=== PATIENT | male | born 1945 | race Caucasian/White ===

== ENCOUNTER → 2022-03-04 | Outpatient (CLI) | payer MEDICARE, BC ==
[~2022-03-04] MED LIST: ASPIRIN 81M81 MG/TA2 PO; PERCOCET 325 MG1 TA2 PO; PLETAL 100MG T100 MG PO; PRAVACHOL 40MG40 MG PO; PRINIVIL10 MG PO; SYNTHROID0.05 MG/TA PO
== END ==
LOC: COL.RAD 09:19
DX: R19.7 Diarrhea, unspecified (principal); K82.8 Other specified diseases of gallbladder
CPT/HCPCS: A9537

== ENCOUNTER 2022-05-02 09:20 | Day surgery (SDC) | payer MEDICARE, BC ==
[~2022-05-02] VITALS: Ht 175.3 cm; Wt 66.0 kg
[2022-05-02] MEDS ORDERED: LOPRESSOR 225 MG/TAB PO (09:52)
[2022-05-02 10:28] LABS: BASO % 0.5 % (0.0-2.0); EOS # 0.3 K/mm3 (0.0-0.7); EOS % 5.1 % (0.0-4.0); GRAN # 4.2 K/mm3 (1.4-6.5); HEMATOCRIT 44.5 % (42.0-52.0); HEMOGLOBIN 15.3 g/dl (13.5-18.0); LYMPH # 0.8 K/mm3 (1.2-3.4); LYMPH % 12.7 % (20.0-51.0); MEAN CELL VOLUME 90 fl (80.0-100.0); MEAN CORPUSCULAR HEMOGLOBIN 31 pg (27-31); MEAN CORPUSCULAR HGB CONC 34 g/dl (33.0-37.0); MEAN PLATELET VOLUME 10.3 fl (7.4-10.4); MONO # 0.7 K/mm3 (0.1-0.6); MONO % 11.4 % (1.7-9.3); PLATELET COUNT 205 K/mm3 (130-400); RED BLOOD COUNT 4.95 M/mm3 (4.20-5.60); REDCELL DISTRIBUTION WIDTH-CV 14.2 % (11.5-14.5)
[2022-05-02] MEDS ORDERED: NORCO 325 MG-51 TAB PO (10:44)
[2022-05-02] MEDS ORDERED: MOTRIN 600600 MG/TAB PO (10:44)
[2022-05-02 11:27] VITALS: BP 167/84; PULSE 76; TEMP 97.2
[2022-05-02 11:40] LABS: CALCIUM 8.8 mg/dL (8.4-10.2); CREATININE, serum 0.94 mg/dL (0.72-1.25)
[2022-05-02 13:30] VITALS: BP 148/77; PULSE 82; TEMP 97.4
[2022-05-02 13:45] VITALS: BP 145/75; PULSE 80
[2022-05-02 14:00] VITALS: BP 157/63; PULSE 85
[2022-05-02 14:15] VITALS: BP 136/62; PULSE 62
[2022-05-02 14:30] VITALS: BP 142/67; PULSE 81
--- NOTE | 2022-05-02 16:01 | NUR ---
1330: Patient arrived back into bay 2 from PACU. Patient is alert and oriented. Vital signs stable on 2L O2. Report received from RONNY Kemp. Requesting orange juice. Patient denies pain or nausea but states he doesn't feel well and his stomach hurts. at bedside. Call light left within reach. 1345: Patient vitally stable, weaned to 1L O2. Tolerating drink well. Warm blanket applied to patient's stomach. Denies nausea. Chocolate pudding placed at bedside for patient. States he would like to rest. 1400: O2 weaned to RA. 1410: Patient tolerating orange juice and chocolate pudding. Complaints of 5/10 pain to incisional area. PRN pain medication given per MAR. 1430: Patient's able to void 400ml in urinal. Denies nausea. Tolerated food and drink well. 1500: Patient resting in bed. Tolerated food and drink. States his stomach feels upset but denies need to puke. States relief with pain medication. 1515: Patient got dressed with assistance x1. Patient states he is having frequent urination. Patient accepted depends for ride home. Clean urinal also sent home with patient. 1530: Went through discharge instructions with patient and . IV removed without complications. Escorted to patient entrance via wheelchair. Patient got into personal vehicle unassisted and left in the care of his .
== END 2022-05-02 15:40 | disposition home or self-care (01) ==
LOC: SDCO 09:20
PROVIDERS: Surgery
DX: K80.10 Calculus of gallbladder with chronic cholecystitis without obstruction (principal); K66.0 Peritoneal adhesions (postprocedural) (postinfection); I25.10 Atherosclerotic heart disease of native coronary artery without angina pectoris
CPT/HCPCS: J0360; J0690; J1100; J1170; J2405; J2704; J3010